=== PATIENT | male | born 1980 | race African-American/Black ===

== ENCOUNTER 2018-07-22 08:57 | Inpatient (IN) | payer OTHER ==
[2018-07-19 13:25] LABS: BASOPHILS % 0.7 % (0.0-1.0); EOSINOPHILS # (AUTO) 0.1 (0.0-0.4); EOSINOPHILS % 3.1 % (0.0-6.0); HEMATOCRIT 44.1 % (38.2-49.6); HEMOGLOBIN 14.1 g/dL (14.0-18.0); LYMPHOCYTES # (AUTO) 1.6 (1.0-3.2); LYMPHOCYTES % 36.5 % (18.0-39.1); MEAN CORPUSCULAR HEMOGLOBIN 28.1 pg (28-32); MONOCYTES # (AUTO) 0.7 (0.2-0.8); MONOCYTES % 16.2 % (4.4-11.3); NEUTROPHILS # (AUTO) 1.8 (2.1-6.9); PLATELET COUNT 239 x10e3/uL (140-360); RED BLOOD COUNT 5.01 x10e6/uL (4.3-5.7); RED CELL DISTRIBUTION WIDTH 12.9 % (11.7-14.4)
[~2018-07-22] VITALS: Ht 190.5 cm; Wt 178.3 kg
[~2018-07-22 08:57] MED LIST: FOLIC ACID; LISINOPRIL10 MG PO
[2018-07-22] MEDS ORDERED: BUPIVACAINE 0.25% 30ML SDV INJ ONE (09:18)
[2018-07-22] MEDS ORDERED: CEFAZOLIN SOD 2 GM/D5W 50ML 50 ML IV ONE (10:01)
[2018-07-22] MEDS ORDERED: ONDANSETRON HCL INJ 2 MG/ML VIAL ONE ×2 (14:07→16:53)
[2018-07-22] MEDS ORDERED: SEVOFLURANE INHAL SOLN 250 ML PEN BTL ONE (14:07)
[2018-07-22] MEDS ORDERED: NEOSTIGMINE 5 MG/5ML SYR ONE (14:07)
[2018-07-22] MEDS ORDERED: PROPOFOL IV EMULSION 10 MG/ML 20 ML VIAL ONE (14:07)
[2018-07-22] MEDS ORDERED: LIDOCAINE HCL 2% LOCAL INJ 5 ML SDV VIAL INJ ONE (14:07)
[2018-07-22] MEDS ORDERED: ROCURONIUM BROMIDE 10 MG/ML 5ML VIAL ONE (14:07)
[2018-07-22] MEDS ORDERED: ACETAMINOPHEN 1000 MG/100 ML IV ONE (14:07)
[2018-07-22] MEDS ORDERED: DEXAMETHASONE SOD PHOS INJ 4 MG/ML VIAL ONE (14:07)
[2018-07-22] MEDS ORDERED: GLYCOPYRROLATE INJ 1MG/ 5 ML SYR ONE (14:07)
[2018-07-22] MEDS ORDERED: MIDAZOLAM HCL 2 MG/2 ML VIAL ONE (14:23)
[2018-07-22] MEDS ORDERED: FENTANYL CITRATE/PF 100MCG/2 ML INJ ONE ×2 (14:23→16:37)
[2018-07-22] MEDS ORDERED: SUGAMMADEX SODIUM 200 MG/2 ML VIAL IV ONE (15:48)
--- NOTE | 2018-07-22 16:31 | Operative Report ---
DATE OF PROCEDURE: July 22, 2018 PREOPERATIVE DIAGNOSES 1. Morbid obesity, body mass index of 49. 2. Hypertension. POSTOPERATIVE DIAGNOSES 1. Morbid obesity, body mass index of 49. 2. Hypertension. PREOPERATIVE INDICATION: Treat disease, prevent complications related to comorbid conditions of obesity. PROCEDURE PERFORMED: Laparoscopic vertical sleeve gastrectomy. ANESTHESIA: General. SKILLED HELPER: Zunilda Garcia, [employer] Att[employer] (needed due to complexity of case). FLUIDS: 1 liter of crystalloid. ESTIMATED BLOOD LOSS: 30 mL. DRAINS: None. COMPLICATIONS: None. SPECIMENS: Partial stomach. GRAFTS: None. FINDINGS 1. Normal upper GI anatomy. 2. Negative intraoperative EGD leak test. PROCEDURAL DETAILS: The patient was brought to the operating room and was intubated under general endotracheal anesthesia. He was sterilely prepped and draped in the usual fashion. A preprocedural pause was performed, identifying the patient and the use of perioperative antibiotics, intended procedure and the staff surgeon. A primary 5-mm left subcostal incision was made, and a Veress needle was inserted to insufflate the abdomen to a pressure of 15 mmHg pressure. A 0-degree 5-mm Optiview trocar was placed under direct visualization. No injuries were noted. Five additional trocars were placed in the standard positions. The patient was positioned in the steep reverse Trendelenburg position, and a liver retractor was used to expose the stomach. I mobilized the greater curvature of the stomach by ligating the gastroepiploic, short gastric, and posterior short gastric vessels starting from about 4 cm proximal to the pyloric valve and going towards the upper end of the stomach to the left manuela of the diaphragm using the [place] LigaSure device. Once the stomach was mobilized in the greater curvature, I then placed an adult-size endoscope along the lesser curvature of the stomach to be used as a bougie. I then stapled off the greater curvature of the stomach along the length of this bougie using multiple firings of an endo TAYLOR 60-mm purple load [employer] stapling device, which was reinforced with Seamguard. We then conducted intraoperative EGD leak test. No leaks were identified. The specimen was then removed through the right periumbilical port site, and the port site was closed with 0 Vicryl suture using the Alex-Franc technique which verified hemostasis, and irrigated the wound where the stomach was removed as well as the trocar site as there was some opening of the gastric specimen. Again hemostasis was verified, the liver retractor was removed, the abdomen was desufflated, and the trocars were removed. We then closed the incision site with a 4-0 Monocryl suture in a subcuticular fashion and applied Dermabond dressings. Bupivacaine 0.25% was used at both the preperitoneal and incision sites. The patient tolerated the procedure well. Type of wound is type 3, contaminated. All surgical sponge and instrument counts were correct. Job#: [id number]
[2018-07-22] MEDS ORDERED: METOCLOPRAMIDE HCL 10 MG/2ML VIAL ONE (17:12)
[2018-07-22] MEDS ORDERED: MORPHINE SULFATE INJ 4 MG/ML INJ ONE ×2 (17:17→18:36)
[2018-07-22] MEDS ORDERED: MEPERIDINE HCL INJ 25 MG/ML VIAL ONE (17:48)
[2018-07-22] MEDS ORDERED: SCOPOLAMINE 1.5 MG PATCH TOP ONE (18:00)
[2018-07-22] MEDS ORDERED: HYDROCODONE/APAP 7.5MG-325MG 1 EA TAB PO PRN (18:00)
[2018-07-22] MEDS ORDERED: MORPHINE SULFATE 2 MG/ML SYR IV PRN (18:30)
--- NOTE | 2018-07-22 18:56 | NUR ---
Patient just arrived the floor from PACU at this time, alert and responsive, IV line in place and fluids running at ordered rate, trochar sites to abd with no drainage and intact, s/p Tiara Y lap, denies major pains at this time, call light within reach and report to on coming nurse.
--- NOTE | 2018-07-22 19:10 | NUR ---
REPORT TAKEN FROM MORENO JIMENEZ.AAOX4.ADMISSION ASSESSMENT DONE.NO RESP.DISTRESS.PAIN VOICED 01/06.NO NAUSEA.ORIENTED THE PT TO THE UNIT.VOIDED.BED LOCKED AN DIN LOWEST POSITION.PHONE AND CALL LIGHT WITHIN REACH.INSTRUCTED TO CALL FOR ASSISTANCE NEEDED.
[2018-07-22 20:00] VITALS: BP 136/73
[2018-07-22 20:10] VITALS: BP 129/77
--- NOTE | 2018-07-22 20:10 | NUR ---
ASSISTED THE PT TO AMBULATE.PAIN MEDICINE GIVEN.TOLERATING ICE CHIPS.TROCHAR SITES 6 DRY AND INTACT.KEEP MONITORING THE PT.VLADIMIR HOSE AND SCD APPLIED.HOB IS ELEVATED.
[2018-07-22] MEDS: LACTATED RINGER'S 1,000 ML IV SCH (21:12)
[2018-07-22] MEDS: ONDANSETRON HCL INJ 2 MG/ML VIAL IV PRN (21:15)
[2018-07-22] MEDS: ENOXAPARIN SOD INJ 40 MG/0.4 ML SYR SC SCH (21:24)
[2018-07-23] VITALS: BP 100/53
--- NOTE | 2018-07-23 00:10 | NUR ---
PT IS SITTING ON THE BED.AMBULATES.VOIDED.NO PAIN VOICED.
[2018-07-23] MEDS: ONDANSETRON HCL INJ 2 MG/ML VIAL IV PRN (02:29)
[2018-07-23] MEDS: MORPHINE SULFATE INJ 4 MG/ML INJ IV PRN ×2 (02:29→07:55)
[2018-07-23] MEDS: LACTATED RINGER'S 1,000 ML IV SCH ×2 (02:37→10:30)
[2018-07-23 04:00] VITALS: BP 102/51
[2018-07-23 05:54] LABS: HEMOGLOBIN 13.1 g/dL (14.0-18.0); MEAN CORPUSCULAR HEMOGLOBIN 28.1 pg (28-32); MEAN CORPUSCULAR VOLUME 87.8 fL (81-99); PLATELET COUNT 228 x10e3/uL (140-360); RED BLOOD COUNT 4.67 x10e6/uL (4.3-5.7); RED CELL DISTRIBUTION WIDTH 12.6 % (11.7-14.4)
[2018-07-23 06:17] LABS: ANION GAP 14.9 mmol/L (8-16); BLOOD UREA NITROGEN 9 mg/dL (7-26); BUN/CREATININE RATIO 10 (6-25); CALCIUM 9.3 mg/dL (8.4-10.2); CARBON DIOXIDE 25 mmol/L (22-29); CHLORIDE 100 mmol/L (98-107); CREATININE, SERUM 0.92 mg/dL (0.72-1.25); EST GLOMERULAR FILTRATION RATE > 60 ML/MIN (60-); GLUCOSE 111 mg/dL (74-118); MAGNESIUM 1.8 MG/DL (1.3-2.1); PHOSPHORUS 4.4 MG/DL (2.3-4.7); POTASSIUM 3.9 mmol/L (3.5-5.1); SODIUM 136 mmol/L (136-145)
--- NOTE | 2018-07-23 07:00 | NUR ---
REPORT GIVEN TO THE ON COMING RN.WALKING ROUNDS DONE.STABLE CONDITION.
--- NOTE | 2018-07-23 07:05 | NUR ---
Received patient walking in hallway. AAOX4 to time, person, place, situation. Respirations even and unlabored. LR 125ml/hr via right Hand IV. Will continue to monitor
[2018-07-23 07:52] VITALS: BP 124/58
[2018-07-23 07:55] VITALS: BP 124/58
[2018-07-23] MEDS: ENOXAPARIN SOD INJ 40 MG/0.4 ML SYR SC SCH (07:59)
--- NOTE | 2018-07-23 10:50 | NUR ---
Progress Note S: No complaints, ambulating, tolerating clears O: AF, VSS, Labs ok Gen- no acute distress Abd- soft, incisions c/d/i A/P: POD 1, s/p Lap sleeve gastrectomy -Clears, ambulate, d/c home today -f/u in 1 week
[2018-07-23] MEDS ORDERED: LISINOPRIL 20 MG TAB PO SCH (11:00)
--- NOTE | 2018-07-23 11:12 | Consultation ---
DATE OF CONSULTATION: REASON FOR CONSULTATION: Medical management. HISTORY OF PRESENT ILLNESS: This is a 38-year-old man, who has a history of extreme obesity, calculated body mass index of 49. He also has history of underlying hypertensive heart disease. The patient underwent successful laparoscopic vertical sleeve gastrectomy yesterday on July 22, 2018. The surgery was performed by his bariatric surgeon, Dr. Prashant Guo. The patient tolerated the surgery quite well. The patient voices no complaints today. The patient states that he has not had any flatus or bowel movement yet. The patient denies any abdominal pain. Denies any nausea or vomiting. The patient states he is tolerating a clear liquid diet. REVIEW OF SYSTEMS GENERAL: Weight has been stable. No fever or chills. HEENT: No headaches. No visual changes. CARDIOVASCULAR/RESPIRATORY: No chest pain, no shortness of breath, no cough. GI: No flatus or bowel movements since the surgery, but no abdominal pain. : No UTI or BPH symptoms. The patient's Guillen catheter was removed in the postanesthesia care unit. NEUROMUSCULAR: No limb weakness. ALLERGIES: NO KNOWN DRUG ALLERGIES. PAST MEDICAL HISTORY 1. Extreme obesity. 2. Hypertensive heart disease. PAST SURGICAL HISTORY 1. Rhinoplasty. 2. Laparoscopic vertical sleeve gastrectomy on July 22, 2018. FAMILY HISTORY: Multiple family members with hypertension and type 2 diabetes mellitus. SOCIAL HISTORY: This man is single, lives alone. No history of tobacco or alcohol use. HOME MEDICATIONS 1. Lisinopril 10 mg daily. 2. Multivitamin once daily. PHYSICAL EXAMINATION GENERAL: He is awake and alert and fully oriented, in no distress. He is very pleasant on exam. His mother is at bedside. VITAL SIGNS: Height 6 feet 3 inches, weight is 393 pounds, calculated body mass index 49. Blood pressure is 124/58, pulse 104, respiratory rate is 22, oxygen saturation is 93% on room air, temperature 96.8. INTEGUMENT: Skin is warm and dry. No pallor, jaundice, diaphoresis. HEENT: Anicteric sclerae with moist mucous membranes. NECK: Supple. CARDIOVASCULAR: Distant heart sounds, tachycardic. Regular rate and rhythm. LUNGS: No rales. No rhonchi. No wheezing. ABDOMEN: Obese. Patient has hypoactive bowel sounds. No tenderness appreciated. The laparoscopic incisions are clean, dry, and intact. EXTREMITIES: No edema. NEUROLOGIC: Intact. DIAGNOSES 1. Status post laparoscopic sleeve gastrectomy. 2. Extreme obesity (calculated body mass index 49), complicating underlying hypertensive heart disease. 3. Hypertensive heart disease. PLAN 1. Blood pressure monitoring. 2. Follow renal function. 3. Mobilize with physical therapy. 4. Enoxaparin. 5. The patient will likely be discharged home today if he has flatus and a bowel movement. I would like to thank Dr. uGo for this generous consult. I spent 40 minutes in the care of this patient. Job#: [id number] MIGUEL
[2018-07-23] MEDS ORDERED: ULTRAM50 MG PO (11:19)
[2018-07-23] MEDS ORDERED: TYLENOL WITH C1 EACH PO (11:20)
[2018-07-23 11:51] VITALS: BP 132/74
--- NOTE | 2018-07-23 14:26 | NUR ---
Right hand IV discontinued. No signs of infiltration noted. 2x2 gauze and tape placed. Taken via wheelchair to personal car. AAOX4 to time, person, place, situation. Respirations even and unlabored. Discharge instructions, rx, and all personal belongings taken with patient.
[2018-07-24] MEDS ORDERED: FOLIC ACID 1 MG TAB PO SCH (09:00)
== END 2018-07-23 14:26 | disposition home or self-care (01) | DRG 621 ==
LOC: OR 08:57 → MED/SURG 17:58
PROVIDERS: ADMIT Surgery; ATTEND Surgery
PROC: 0DB64Z3 Excision of Stomach, Percutaneous Endoscopic Approach, Vertical (ICD-10-PCS; principal; 2018-07-22 11:30)
DX: E66.01 Morbid (severe) obesity due to excess calories (principal); Z68.42 Body mass index [BMI] 45.0-49.9, adult; I11.9 Hypertensive heart disease without heart failure
CPT/HCPCS: 36415; 80048; 83735; 84100; 85007; 85025; 85027; 86850; 86900; 93005; J0690; J1100; J1650; J2001; J2175; J2250; J2270; J2405; J2765; J7120